=== PATIENT | female | born 1955 | race Caucasian/White ===

== ENCOUNTER → 2017-02-14 | Outpatient (CLI) | payer OTHER ==
--- NOTE | 2017-02-14 10:30 | MR ---
MRI internal auditory canals without and with contrast HISTORY: Hearing loss No comparisons Multiplanar multisequence and postcontrast images obtained through the brain with small [id number]-yl-ysev high-resolution images obtained through the internal auditory canals. Patient received 20 cc MultiHa nce IV. There is no restricted diffusion to suggest subacute ischemia. There is no hemorrhage or hydrocephalu s. Cerebellopontine angles, corpus callosum, pituitary, cervical medullary junction are within normal limits. The orbits show symmetric appearance. No abnormal enhancement following contrast administrat ion. There are normal vascular flow voids. Minimal inflammatory change in the ethmoid air cells. Left mastoid air cells show some inflammatory change, fluid signal. No evident abnormality of the nicolasa icircular canals or cochlea. Scattered hyperintensities within the periventricular white matter on inversion recovery and T2-weigh crystal sequences are present, approximately 5-10 lesions. IMPRESSION: Nonspecific white matter demyelination questionable clinical significance may be due to c hronic small vessel ischemia, hypertension, migraine headaches. Correlate for possible mastoiditis, t emporal bone CT may be of benefit. No cerebellopontine angle mass or abnormality of the internal la tory canal.
== END | disposition home or self-care (01) ==
LOC: RADMRIMAIN 08:15
PROVIDERS: ATTEND Otolaryngology
DX: G37.8 Other specified demyelinating diseases of central nervous system (principal); R90.82 White matter disease, unspecified; H91.90 Unspecified hearing loss, unspecified ear
CPT/HCPCS: 70553; A9577